=== PATIENT | male | born 1960 | race Caucasian/White ===

== ENCOUNTER → 2016-11-25 | Outpatient (CLI) | payer OTHER ==
[~2016-11-25] MED LIST: ATOR-24 PO; CHOL100010 PO; MULT-506 PO; NAPR-1169 PO; OMEP20TA PO
[2016-11-25 17:58] LABS: ALT/SGPT 48 U/L (12-78); AST/SGOT 21 U/L (15-37); BLOOD UREA NITROGEN 16 mg/dl (7-18); BUN/CREATININE RATIO 16.7 (10-20); CALCIUM 9.3 mg/dl (8.5-10.1); CARBON DIOXIDE 25 mmol/L (21-32); CHLORIDE 104 mmol/L (98-107); CREATININE 0.95 mg/dl (0.60-1.40); GLUCOSE 103 mg/dl (70-99); POTASSIUM 4.5 mmol/L (3.5-5.1); SODIUM 138 mmol/L (136-145)
[2016-11-25 18:01] LABS: ALB/GLOB RATIO 1.1 (0.9-2); ALKALINE PHOSPHATASE 82 U/L (45-117); CHOLESTEROL 173 mg/dl (0-200); CHOLESTEROL/HDL RATIO 3.3; HDL CHOLESTEROL 52 mg/dl; LDL CHOLESTEROL CALCULATED 94 mg/dl; TRIGLYCERIDES 135 mg/dl (0-150); VERY LOW DENSITY LIPOPROT CALC 27 mg/dl
== END | disposition home or self-care (01) ==
LOC: C.LABBFT 12:16
PROVIDERS: ATTEND Nurse Practitioner
DX: E78.00 Pure hypercholesterolemia, unspecified (principal)

== ENCOUNTER → 2017-06-23 | Outpatient (CLI) | payer OTHER ==
[2017-06-23 16:54] LABS: ALT/SGPT 56 U/L (12-78); AST/SGOT 23 U/L (15-37); BLOOD UREA NITROGEN 15 mg/dl (7-18); BUN/CREATININE RATIO 16.4 (10-20); CALCIUM 9.1 mg/dl (8.5-10.1); CARBON DIOXIDE 30 mmol/L (21-32); CHLORIDE 104 mmol/L (98-107); CREATININE 0.93 mg/dl (0.60-1.40); GLUCOSE 109 mg/dl (70-99); POTASSIUM 4.7 mmol/L (3.5-5.1); SODIUM 137 mmol/L (136-145)
[2017-06-23 16:57] LABS: ALB/GLOB RATIO 1.1 (0.9-2); ALKALINE PHOSPHATASE 84 U/L (45-117); CHOLESTEROL 152 mg/dl (0-200); CHOLESTEROL/HDL RATIO 3.1; HDL CHOLESTEROL 49 mg/dl; LDL CHOLESTEROL CALCULATED 81 mg/dl; TRIGLYCERIDES 108 mg/dl (0-150); VERY LOW DENSITY LIPOPROT CALC 22 mg/dl
== END | disposition home or self-care (01) ==
LOC: C.LABBFT 11:46
PROVIDERS: ATTEND Nurse Practitioner
DX: E78.00 Pure hypercholesterolemia, unspecified (principal); R53.83 Other fatigue

== ENCOUNTER → 2017-12-23 | Outpatient (CLI) | payer OTHER ==
[2017-12-23 12:46] LABS: ALBUMIN 4.1 gm/dl (3.4-5.0); ALT/SGPT 60 U/L (12-78); BLOOD UREA NITROGEN 21 mg/dl (7-18); CALCIUM 9.1 mg/dl (8.5-10.1); CARBON DIOXIDE 27 mmol/L (21-32); CHOLESTEROL 152 mg/dl (0-200); CREATININE 0.93 mg/dl (0.60-1.40); GLUCOSE 131 mg/dl (70-99); POTASSIUM 4.5 mmol/L (3.5-5.1); SODIUM 136 mmol/L (136-145)
[2017-12-23 12:51] LABS: ALKALINE PHOSPHATASE 75 U/L (45-117); AST/SGOT 36 U/L (15-37); LDL CHOLESTEROL CALCULATED 85 mg/dl; TOTAL PROTEIN 8.2 gm/dl (6.4-8.2)
== END | disposition home or self-care (01) ==
LOC: C.LABBFT 07:31
PROVIDERS: ATTEND Nurse Practitioner
DX: E78.00 Pure hypercholesterolemia, unspecified (principal); Z12.5 Encounter for screening for malignant neoplasm of prostate

== ENCOUNTER 2023-01-08 12:18 | Inpatient (IN) ==
[2023-01-08] MEDS ORDERED: ONDANSETRON INJ 2 MG/ML 2 ML VIAL ONE ×2 (12:29→16:27)
[2023-01-08] MEDS ORDERED: ONDANSETRON INJ 2 MG/ML 2 ML VIAL IV STA (12:35)
[2023-01-08] MEDS ORDERED: HYDROmorphone INJ 1 MG/ML SYRINGE IV STA ×2 (12:42→13:57)
[2023-01-08] MEDS ORDERED: SODIUM CHLORIDE 0.9% 1000ML 1,000 ML IV ONE ×2 (12:42→14:30)
--- NOTE | 2023-01-08 12:43 | Emergency Department Note ---
Impression & Plan Calculus of proximal right ureter, Hydronephrosis, right, Intractable pain ED Provider Note Name: COTY EUGENE Age: 62 Sex: M Arrives Via: Walk-In Informant: Patient ED Provider: Parrish Melgoza MD Chief Complaint: Right flank pain Impression: As per impressions above Medical Decision Makin-year-old gentleman with a history of hypertension type 2 diabetes, dyslipidem ia, obesity, BRIGIDO arrives for evaluation of right flank pain. Patient had sudden onset right flank pain and very much appears to be kidney stone in nature. Did have recent left shoulder surgery but no shortness of breath chest pain nor symptoms consistent with PE. CT of the abdomen pelvis does reveal a 2 mm proximal stone with mild hydro-. Unfortunate patient with significant difficulty controlling his pain. He has received 4 rounds of IV Dilaudid along with some IV Toradol varying dosing and continues to be uncomfortable. Unfortunately is becoming a bit hypoxic despite still being a bit uncomfortable. He has been in the department about 3 hours and given the persistent discomfort I think likely will require hospitalization for pain control. Unfortunately was unable to get a urine sample quite yet though is not having any fevers chills nor urinary burning symptoms. Triage/Nursing Notes reviewed by Me Differentials:Renal colic, pyelonephritis, sepsis, aortic pathology, cholecystitis, appendicitis, PE amongst multiple other pathologies considered Vital Signs: reviewed and remarkable for hypertension on arrival Interventions: 1 mg IV x2, Dilaudid 0.5 mg IV x2, Toradol 10 mg IV, normal saline bolus 2 L IV, Zofran 4 mg IV Labs:Reviewed and remarkable for no significant abnormalities Imaging:CT imaging of the abdomen pelvis without contrast as per my informal interpretation reveals a 2 mm proximal right ureteral stone with small stones in the right kidney as well. Confirmed by radiologist CT chart for entirety of their read Consults:Reviewed with on-call urology who agree no clear indication for emergent OR and given medical issues will bring into hospitalist service for pain control thus hospitalist consulted for further management Plan: Disposition:Hospitalization. Condition: Good History of Present Illness: 62 yr old male with right flank pain. Sudden onset right flank pain this afternoon. Associated nausea, vomiting. Radiation to right abdomen. Nothing makes better nor worse. No medications prior to arrival. No previous similar symptoms. Denies any shob, anterior abdominal pain, leg pain, chest pain, sob, palpitations, nor syncope. No other symptoms. No trauma nor injuries. Recent left shoulder surgery 3 weeks ago. Past History:DMII, HLP, HTN amongst others Home Medications:See Below Allergies:See Below Vitals:Blood Pressure: 198/124, Pulse 97, RR 18, T 36.3C, O2 96% on RA Physical Exam: GENERAL: Patient is very uncomfortable appearing and in moderate distress. EYES: No scleral icterus, unremarkable pupils. RESPIRATORY: No dyspnea. Clear to auscultation and equal bilaterally. No wheeze, no rhonchi. CARDIOVASCULAR: Regular rate and rhythm.No murmurs, rubs, gallops appreciated. GASTROINTESTINAL: Abdomen soft, non-tender, no peritonitis. BACK: No midline tenderness, no CVA tenderness EXTREMITIES: Normal motion all extremities, no cyanosis, no edema. NEUROLOGIC: Alert and oriented, no acute motor or sensory deficits, no focal weakness, cranial nerves grossly intact. SKIN: No rash, no jaundice, no diaphoresis. PSYCH: Appropriate GCS: 15 Parrish Melgoza MD Past Med/Surg History Medical History (Updated 01/09/23 @ 14:25 by Parrish Melgoza MD) Colon polyps GERD (gastroesophageal reflux disease) Hypercholesterolemia Hypertension Internal hemorrhoids Sleep apnea NO DEVICE Type 2 diabetes mellitus without complication IDDM Surgical History (Updated 12/12/22 @ 13:02 by Gabriel Mtz PA-C) History of ankle surgery ORIF right ankle (with hardware as a child) History of appendectomy History of colonoscopy History of dental surgery History of repair of rotator cuff RT glidescope #4 ETT 8 + PNB. Family History Mother Cervical cancer Ovarian cancer Diabetes Cardiac disorder Myocardial infarction Father Cardiac disorder Myocardial infarction Other No family history of adverse response to anesthesia Denies family history of Prostate cancer Breast cancer Colorectal cancer Social History Smoking Status: Former smoker Age Started Using Tobacco: 13; packs per day: 1.5; Second Hand Exposure: Yes ('S SMOKES); Hx Alcohol Use: No Hx Substance Use: No Preferred Language: Lao Communication Ability: Effective Lead Radiation Therapist Required: No Beliefs That Will Affect Care: None Current Living Situation: Spouse current occupational status: employed current occupation: HAS BEEN OFF WORK SINCE 04/30/22 Other Information That Helps Us Care for You: No Feels Safe at Home: Yes Safety Concerns: Feels Safe At This Time caffeine: Yes Dental Care, Regularly: Yes Physical Activity Frequency: 5-6 Times per Week Seatbelt Use: always Sunscreen Use: Yes Assistive Devices: None Allergies Allergies Allergy/AdvReac Type Severity Reaction Status Date / Time iodine Allergy Intermediate ABDOMINAL Verified 01/08/23 13:45 CRAMPING shellfish derived Allergy Intermediate MUSCLE Verified 01/08/23 13:45 CRAMPS Home Meds Home Medications Medication Instructions Recorded Confirmed cholecalciferol (vitamin D3) 50 2,000 units PO HS 06/01/19 01/08/23 mcg (2,000 unit) tablet lancets (Accu-Chek Fastclix Lancet #50 ea 06/01/19 11/25/22 Drum) pnypsbyzcmyh-gpgsvfxu-konqlt tablet 1 tab PO HS 06/01/19 01/08/23 coenzyme Q10 200 mg capsule 400 mg PO HS 04/18/20 01/08/23 ascorbic acid (vitamin C) 500 mg 500 mg PO QAM 06/25/22 01/08/23 tablet (Vitamin C) cyanocobalamin (vitamin B-12) 1,000 mcg PO DAILY 11/25/22 01/08/23 1,000 mcg tablet insulin detemir U-100 100 unit/mL 20 unit subcut HS 12/06/22 01/08/23 (3 mL) subcutaneous pen (Levemir FlexPen) zinc gluconate 50 mg tablet 50 mg PO DAILY 01/08/23 01/08/23 Previous Rx's Medication Instructions Recorded dulaglutide 3 mg/0.5 mL 3 mg (0.5 mL) subcut WK #12 02/13/22 subcutaneous pen injector SYRINGES naproxen 500 mg tablet 500 mg PO BID PRN pain #180 tabs 06/24/22 rosuvastatin 20 mg tablet 20 mg PO HS #90 tabs 06/24/22 pen needle, diabetic 32 gauge x #100 ea 07/01/22 1/4" (BD Ultra-Fine Micro Pen Needle) blood sugar diagnostic (OneTouch #100 ea 07/02/22 Ultra Test strips) blood-glucose meter (OneTouch #1 ea 07/02/22 Ultra2 Meter) lancets 30 gauge (Jaynauch Dellionel #100 ea 07/02/22 Lancets) irbesartan 150 mg tablet 150 mg PO QAM #90 tabs 11/25/22 metformin 500 mg tablet,extended 1,000 mg PO BID #360 tabs 11/25/22 release 24 hr omeprazole 20 mg capsule,delayed 20 mg PO QAM #90 caps 11/25/22 release Results & Data (ED) Vital Signs Vital Signs - 24 hr 01/08/23 15:39 01/08/23 15:01 01/08/23 15:38 Pulse Rate [Right] 99 H 99 H 98 H Pulse Rhythm [Right] Regular Respiratory Rate 17 16 17 Respiratory Effort / Characteristics Non-Labored Spontaneous Non-Labored Spontaneous Respiratory Depth Normal Normal Blood Pressure [Right Arm] 162/88 H 178/99 H 162/88 H Blood Pressure Mean [Right Arm] 112 125 112 Blood Pressure Position [Right Arm] Sitting Pulse Oximetry 97 91 96 Oxygen Delivery Method Nasal Cannula Room Air Nasal Cannula Oxygen Flow Rate 2 2 Laboratory Data 01/09/23 07:13 01/09/23 07:13 Lab Results 01/08/23 01/08/23 01/08/23 Range/Units 12:28 12:28 14:50 WBC 11.81 H (4.8-10.8) K/ul RBC 4.52 L (4.70-6.10) M/uL Hgb 13.2 L (14.0-18.0) g/dl Hct 40.2 L (42.0-52.0) % MCV 88.9 (80.0-100.0) fL MCH 29.2 (25.0-34.0) pg MCHC 32.8 (32.0-36.0) g/dL RDW Std Deviation 43.9 (36.4-46.3) fL RDW Coeff of Maverick 13.4 (11.5-14.5) % Plt Count 274 (130-400) K/uL MPV 12.3 (9.4-12.4) fL Immature Gran % (Auto) 0.3 % Neut % (Auto) 71.1 % Lymph % (Auto) 19.1 % Kingfisher % (Auto) 6.6 % Eos % (Auto) 2.4 % Baso % (Auto) 0.5 % Neut # (Auto) 8.39 H (1.40-6.50) K/uL Lymph # (Auto) 2.26 (1.2-3.4) K/uL Kingfisher # (Auto) 0.78 H (0.11-0.59) K/uL Eos # (Auto) 0.28 (0-0.50) K/uL Baso # (Auto) 0.06 (0-0.2) K/uL Immature Gran # (Auto) 0.04 (0.01-0.20) K/uL Sodium 136 (136-145) mmol/L Potassium 4.5 (3.5-5.1) mmol/L Chloride 100 (98-107) mmol/L Carbon Dioxide 26 (21-32) mmol/L Anion Gap 10 (3-11) BUN 26 H (6-23) mg/dl Creatinine 1.17 (0.6-1.4) mg/dl Est Cr Clr Drug Dosing 80.0 ml/min Est GFR ( Amer) 77.0 ml/min Est GFR (Non-Af Amer) 66.4 ml/min BUN/Creatinine Ratio 22.2 H (10-20) Glucose 167 H (70-99(Fasting)) mg/dl Calcium 10.0 (8.6-10.3) mg/dl Total Bilirubin 0.5 (0.2-1.0) mg/dl AST 25 (13-39) U/L ALT 29 (7-52) U/L Alkaline Phosphatase 65 (34-104) U/L Total Protein 8.9 H (6.0-8.3) gm/dl Albumin 4.6 (3.4-5.0) gm/dl Globulin 4.3 H (2.5-4.0) gm/dl Albumin/Globulin Ratio 1.1 (0.9-2) SARS-CoV-2, RNA, NAAT NEGATIVE (NEGATIVE) Administered Medications Lactated Ringer's (Lr) 1,000 mls @ 125 mls/hr IV .Q8H SULAIMAN Stop: 02/07/23 15:59 Last Admin: 01/09/23 07:35 Dose: 125 mls/hr Documented By: Infusion: 01/09/23 07:28 Dose: 125 mls/hr Documented By: Admin: 01/08/23 23:28 Dose: 125 mls/hr Documented By: Infusion: 01/08/23 23:28 Dose: 125 mls/hr Documented By: Admin: 01/08/23 16:03 Dose: 125 mls/hr Documented By: Insulin Aspart (Insulin Aspart Per Unit Charge) 0 units SC ACHS SULAIMAN Stop: 02/07/23 16:44 Last Admin: 01/09/23 12:57 Dose: 5 units Documented By: CARIN Co-signed By: WINTER Admin: 01/09/23 09:15 Dose: 5 units Documented By: CARIN Co-signed By: WINTER Admin: 01/08/23 20:25 Dose: Not Given Documented By: Admin: 01/08/23 17:14 Dose: Not Given Documented By: NARENDRA Insulin Glargine (Lantus Per Unit Charge) 20 units SQ HS [facility] Stop: 02/07/23 20:59 Last Admin: 01/08/23 20:23 Dose: 20 units Documented By: DWIGHT Co-signed By: JEAN Losartan Potassium (Losartan Potassium 50 Mg Tab) 50 mg PO QAM SULAIMAN Stop: 02/08/23 08:59 Last Admin: 01/09/23 09:15 Dose: 50 mg Documented By: CARIN Pantoprazole Sodium (Pantoprazole 40 Mg Tab) 40 mg PO DAILY SULAIMAN Stop: 02/08/23 08:59 Last Admin: 01/09/23 09:16 Dose: 40 mg Documented By: CARIN Rosuvastatin Calcium (Rosuvastatin Calcium 20 Mg Tab) 20 mg PO [facility] Stop: 02/07/23 20:59 Last Admin: 01/08/23 20:26 Dose: 20 mg Documented By: DIWGHT Tamsulosin HCl (Tamsulosin Hcl 0.4 Mg Cap) 0.4 mg PO QAM SULAIMAN Stop: 02/08/23 08:59 Last Admin: 01/09/23 09:16 Dose: 0.4 mg Documented By: CARIN Discontinued Medications Hydromorphone HCl (Hydromorphone Inj 1 Mg/Ml Syringe) 1 mg IV NOW STA Stop: 01/08/23 12:43 Last Admin: 01/08/23 12:48 Dose: 1 mg Documented By: Hydromorphone HCl (Hydromorphone Inj 0.5 Mg/0.5 Ml Syr) 0.5 mg IV NOW STA Stop: 01/08/23 13:09 Last Admin: 01/08/23 13:13 Dose: 0.5 mg Documented By: Hydromorphone HCl (Hydromorphone Inj 1 Mg/Ml Syringe) 1 mg IV NOW STA Stop: 01/08/23 13:58 Last Admin: 01/08/23 13:59 Dose: 1 mg Documented By: MICHAEL Hydromorphone HCl (Hydromorphone Inj 0.5 Mg/0.5 Ml Syr) 0.5 mg IV NOW STA Stop: 01/08/23 14:31 Last Admin: 01/08/23 14:44 Dose: 0.5 mg Documented By: Sodium Chloride (Nss 1000ml) 1,000 mls @ 999 mls/hr IV .Q1H1M ONE Stop: 01/08/23 13:42 Last Infusion: 01/08/23 13:49 Dose: 0 mls/hr Documented By: Admin: 01/08/23 12:48 Dose: 999 mls/hr Documented By: Sodium Chloride (Nss 1000ml) 500 mls @ 999 mls/hr IV .Q31M ONE Stop: 01/08/23 13:38 Last Infusion: 01/08/23 13:46 Dose: 0 mls/hr Documented By: Admin: 01/08/23 13:15 Dose: 999 mls/hr Documented By: Sodium Chloride (Nss 1000ml) 1,000 mls @ 999 mls/hr IV .Q1H1M ONE Stop: 01/08/23 15:30 Last Infusion: 01/08/23 15:49 Dose: 0 mls/hr Documented By: Admin: 01/08/23 14:48 Dose: 999 mls/hr Documented By: Ketorolac Tromethamine (Ketorolac Tromethamine 15 Mg/Ml Vial) 10 mg IV NOW STA Stop: 01/08/23 13:58 Last Admin: 01/08/23 14:43 Dose: 10 mg Documented By: Ondansetron HCl (Ondansetron Inj 2 Mg/Ml 2 Ml Vial) Confirm Administered Dose 4 mg .ROUTE .STK-MED ONE Stop: 01/08/23 12:30 Last Admin: 01/08/23 12:36 Dose: Not Given Documented By: SMITHA Ondansetron HCl (Ondansetron Inj 2 Mg/Ml 2 Ml Vial) 4 mg IV NOW STA Stop: 01/08/23 12:36 Last Admin: 01/08/23 12:36 Dose: 4 mg Documented By: SMITHA Ondansetron HCl (Ondansetron Inj 2 Mg/Ml 2 Ml Vial) Confirm Administered Dose 4 mg .ROUTE .STK-MED ONE Stop: 01/08/23 16:28 Last Admin: 01/08/23 16:28 Dose: 4 mg Documented By: Tamsulosin HCl (Tamsulosin Hcl 0.4 Mg Cap) 0.4 mg PO NOW ONE Stop: 01/08/23 15:48 Last Admin: 01/08/23 17:11 Dose: Not Given Documented By: NARENDRA Discharge Plan Visit Data Chief Complaint: Flank Pain Stated Complaint: RIGHT SIDE BACK PAIN ED Provider: Parrish Melgoza Discharge Problem: Calculus of proximal right ureter, Hydronephrosis, right, Intractable pain Patient Disposition: Admitted As Inpatient Discharge Instructions Interventions: ED Discharge Assessment Last Done: 01/08/23 16:16
[2023-01-08] MEDS ORDERED: SODIUM CHLORIDE 0.9% 1000ML 500 ML IV ONE (13:08)
[2023-01-08] MEDS ORDERED: HYDROmorphone INJ 0.5 MG/0.5 ML SYR IV STA ×2 (13:08→14:30)
--- NOTE | 2023-01-08 13:29 | CT Scan Report ---
CT SCAN OF THE ABDOMEN AND PELVIS WITHOUT IV CONTRAST CLINICAL HISTORY: Right flank pain. COMPARISON STUDY: Abdominal CT dated 03/18/2009. TECHNIQUE: CT scan of the abdomen and pelvis is performed from the lung bases to the proximal femora. Images are reviewed in the axial, sagittal, and coronal planes. IV contrast was not administered for this examination. A dose lowering technique was utilized adhering to the principles of ALARA. There is streak artifact from the left arm which could not be elevated above the abdomen. CT DOSE: 1531.68 mGy.cm FINDINGS: Lung bases: The heart is normal in size and without pericardial effusion. The coronary arteries and a ortic valve leaflets are densely calcified. There is a small hiatal hernia. There are scattered calci fied granulomas. The lung bases are otherwise clear noting bibasilar scarring/atelectasis. Liver: The unenhanced liver is enlarged, measuring 20.6 cm in length. The liver demonstrates diffusel y diminished attenuation indicating steatosis. Fatty sparing is seen adjacent to the gallbladder carole a. There is no intrahepatic biliary ductal dilatation. Gallbladder: Unremarkable. Spleen: Normal in size and attenuation. Pancreas: The unenhanced pancreas is grossly unremarkable. Adrenal glands: Unremarkable. Kidneys: The unenhanced kidneys demonstrate mild cortical atrophy. There is a 2 mm obstructing calcul us in the right proximal ureter at the level of L3 on L4 seen on image #232. This causes mild right h ydroureteronephrosis. There is associated right-sided perinephric stranding. There are at least 3 add itional small nonobstructing right renal calculi which measure up to 4 mm. No left renal calculi are identified and there is no left-sided hydronephrosis. An indeterminate 12 mm cortical hypodensity jani ses from the lower pole of the left kidney. Abdominal vasculature: There is advanced atherosclerotic calcification mild ectasia of the abdominal aorta. 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 Bowel: There is moderate sigmoid diverticulosis without CT evidence of acute diverticulitis. No bowel obstruction is seen. The appendix is surgically absent. Peritoneum: There is no intraperitoneal free air or abdominal ascites. There is a small fat-containin g umbilical hernia. Lymphadenopathy: None. Pelvic viscera: The prostate gland is diminutive and heterogeneous. The bladder wall appears thickene d/trabeculated suggesting chronic outlet obstruction Skeletal structures: The skeletal structures appear osteopenic. There is mild lumbosacral spondylosis . No lytic or blastic lesions are seen. There are chronic/healed right-sided rib fractures. IMPRESSION: 1. There is a 2 mm obstructing calculus in the right proximal ureter. This causes mild right hydroure teronephrosis. 2. Additional nonobstructing right renal calculi as above. 3. Hepatomegaly and hepatic steatosis. 4. Advanced coronary artery calcification. 5. Sigmoid diverticulosis without CT evidence of acute diverticulitis. 6. An indeterminate 12 mm cortical hypodensity arises from the lower pole of the left kidney. A nonem ergent renal ultrasound is recommended in follow-up. 7. Additional findings as above. ACT 112: Negative or not required by law. Electronically signed by: Syd Barnhart M.D. 01/08/2023 1:27 PM
[2023-01-08 13:37] LABS: Basophils # (auto) 0.06 K/uL (0-0.2); Basophils % (auto) 0.5 %; Eosinophils # (auto) 0.28 K/uL (0-0.50); Eosinophils % (auto) 2.4 %; Hematocrit (blood only) 40.2 % (42.0-52.0); Hemoglobin 13.2 g/dl (14.0-18.0); Immature Granulocytes # (auto) 0.04 K/uL (0.01-0.20); Immature Granulocytes % (auto) 0.3 %; Lymphocytes # (auto) 2.26 K/uL (1.2-3.4); Lymphocytes % (auto) 19.1 %; Mean Corpuscular Hemoglobin 29.2 pg (25.0-34.0); Mean Corpuscular Hgb Conc 32.8 g/dL (32.0-36.0); Mean Corpuscular Volume 88.9 fL (80.0-100.0); Mean Platelet Volume 12.3 fL (9.4-12.4); Monocytes # (auto) 0.78 K/uL (0.11-0.59); Monocytes % (auto) 6.6 %; Neutrophils # (auto) 8.39 K/uL (1.40-6.50); Neutrophils % (auto) 71.1 %; Platelet Count 274 K/uL (130-400); RDW Coefficient of Variation 13.4 % (11.5-14.5); RDW Standard Deviation 43.9 fL (36.4-46.3); Red Blood Count 4.52 M/uL (4.70-6.10); White Blood Count 11.81 K/ul (4.8-10.8)
[2023-01-08] MEDS ORDERED: KETOROLAC TROMETHAMINE 15 MG/ML VIAL IV STA (13:57)
[2023-01-08 13:59] LABS: Albumin Level 4.6 gm/dl (3.4-5.0); Bilirubin,Total 0.5 mg/dl (0.2-1.0); Potassium 4.5 mmol/L (3.5-5.1)
[2023-01-08 14:05] LABS: Albumin Globulin Ratio 1.1 (0.9-2); BUN Creatinine Ratio 22.2 (10-20); Est GFR (Non-African American) 66.4 ml/min; Globulin 4.3 gm/dl (2.5-4.0); Total Protein 8.9 gm/dl (6.0-8.3)
--- NOTE | 2023-01-08 15:16 | History & Physical Report ---
Date of Service January 08, 2023 Assessment & Plan (1) Nephrolithiasis: Plan: Nephrolithiasis with right hydroureteronephrosis - CT-A/P: 1. There is a 2 mm obstructing calculus in the right proximal ureter. This causes mild right hydroureteronephrosis. 2. Additional nonobstructing right renal calculi as above.3. Hepatomegaly and hepatic steatosis. 4. Advanced coronary artery calcification. 5. Sigmoid diverticulosis without CT evidence of acute diverticulitis. 6. An indeterminate 12 mm cortical hypodensity arises from the lower pole of the left kidney. A nonemergent renal ultrasound is recommended in follow-up. 7. Additional findings as above. - Patient has been taking naproxen as an outpatient since having left shoulder arthroscopy and rotator cuff repair 12/12/2022. Continue Tylenol, breakthrough hydromorphone. Limit Toradol/NSAID use, patient reports he is to minimize and avoid using NSAIDs due to his recent shoulder arthroplasty. Flomax, fluids. Strain all urine Urology consulted. Recommended medical admission and management at this time, do not anticipate cystoscopy at this time. Leukocytosis of 11.81 Hemoglobin 13.2 Creatinine is less than 1.2 at baseline, admitting creatinine is 1.17 BSG 167 Patient with severe pain, not improved following Tylenol, Toradol, 4 doses of hydromorphone in ER. - Hypoxic post 4x hydromorphine, improved with oxygen. Defer agreessive dilaudid, narcan senior functional analyst for respiratory suppression UA pending, patient reports his urine has been a little concentrated and delatorre slightly. Will defer empiric antibiotic treatment until UA available Sinus tachycardia, hypertension Improved with pain control, hypertension also improved with pain control. Suspect reactive Continue pain control as noted Continue home antihypertensives, hold ARB if JUANITA develops On-call hydralazine for sustained SBP greater than 180, if persistently hypertensive despite adequate pain control contact provider for reassessment. Hyperlipidemia Continue statin Type II DM On Levemir 20 units at bedtime at home Continue Lantus 20 units at bedtime, scaled SSI based on basal needs. CF 40/ratio 13 Goal BSG [id number] Type II DM diet Hypertension Continue irbesartan 150 mg, no JUANITA on admission DVT PPx: SCDs Diet: DM2 CODE STATUS: Full code Disposition: Medical surgical (2) Sleep apnea: (3) S/P arthroscopy of right shoulder: (4) Hypertension: (5) History of arthroscopy of left shoulder: History of Present Illness Primary Care Provider: EMA Arora 10am R flank pain came on suddenly. No pain/problems like this before. Denies history of kidney stones. Was in normal state of health yesterday. Took medications this morning and thinks he kept them down No blood in the urine. +nausea/vomiting 4-5x. No blood. No chest pain or chest pressure No shortness of breath No fevers or chills, gets warm and occasionally cold with pain normally but not chills. Last urinated this morning, then a little bit an hour ago. Dark. Delatorre slightly. Taking tylenol at home for pain, 3x 500mg tablets 3-4 times per day. Yesterday only twice. No NSAIDs per patient. No alieve, Medical History: Reviewed Medications: Reviewed Surgical History: Reviewed Family history: Reviewed Allergies: Reviewed. NKDA, +iodine/shellfish suspected allergy. Had cramps and nausea Social History: No tobacco product use, no alochol use. Code Status: Full Code Allergies Allergy/AdvReac Type Severity Reaction Status Date / Time iodine Allergy Intermediate ABDOMINAL Verified 01/08/23 13:45 CRAMPING shellfish derived Allergy Intermediate MUSCLE Verified 01/08/23 13:45 CRAMPS Home Medications Medication Instructions Recorded Confirmed Type cholecalciferol (vitamin D3) 50 2,000 units PO HS 06/01/19 01/08/23 History mcg (2,000 unit) tablet lancets (Accu-Chek Fastclix Lancet #50 ea 06/01/19 11/25/22 History Drum) wekrnvohxrxj-qwqtpenp-nobamg tablet 1 tab PO HS 06/01/19 01/08/23 History coenzyme Q10 200 mg capsule 400 mg PO HS 04/18/20 01/08/23 History dulaglutide 3 mg/0.5 mL 3 mg (0.5 mL) subcut WK #12 02/13/22 01/08/23 Rx subcutaneous pen injector SYRINGES naproxen 500 mg tablet 500 mg PO BID PRN pain #180 tabs 06/24/22 01/08/23 Rx rosuvastatin 20 mg tablet 20 mg PO HS #90 tabs 06/24/22 01/08/23 Rx ascorbic acid (vitamin C) 500 mg 500 mg PO QAM 06/25/22 01/08/23 History tablet (Vitamin C) pen needle, diabetic 32 gauge x #100 ea 07/01/22 11/25/22 Rx 1/4" (BD Ultra-Fine Micro Pen Needle) blood sugar diagnostic (OneTouch #100 ea 07/02/22 11/25/22 Rx Ultra Test strips) blood-glucose meter (OneTouch #1 ea 07/02/22 11/25/22 Rx Ultra2 Meter) lancets 30 gauge (OneTouch Delica #100 ea 07/02/22 11/25/22 Rx Lancets) cyanocobalamin (vitamin B-12) 1,000 mcg PO DAILY 11/25/22 01/08/23 History 1,000 mcg tablet irbesartan 150 mg tablet 150 mg PO QAM #90 tabs 11/25/22 01/08/23 Rx metformin 500 mg tablet,extended 1,000 mg PO BID #360 tabs 11/25/22 01/08/23 Rx release 24 hr omeprazole 20 mg capsule,delayed 20 mg PO QAM #90 caps 11/25/22 01/08/23 Rx release insulin detemir U-100 100 unit/mL 20 unit subcut HS 12/06/22 01/08/23 History (3 mL) subcutaneous pen (Levemir FlexPen) zinc gluconate 50 mg tablet 50 mg PO DAILY 01/08/23 01/08/23 History Past Med/Surg History Medical History (Updated 01/08/23 @ 15:35 by Long Israel MD) Colon polyps GERD (gastroesophageal reflux disease) Hypercholesterolemia Hypertension Internal hemorrhoids Sleep apnea NO DEVICE Type 2 diabetes mellitus without complication IDDM Surgical History (Updated 12/12/22 @ 13:02 by Gabriel Mtz PA-C) History of ankle surgery ORIF right ankle (with hardware as a child) History of appendectomy History of colonoscopy History of dental surgery History of repair of rotator cuff RT glidescope #4 ETT 8 + PNB. Family History Mother Cervical cancer Ovarian cancer Diabetes Cardiac disorder Myocardial infarction Father Cardiac disorder Myocardial infarction Other No family history of adverse response to anesthesia Denies family history of Prostate cancer Breast cancer Colorectal cancer Social History Smoking Status: Former smoker Age Started Using Tobacco: 13; packs per day: 1.5; Second Hand Exposure: Yes ('S SMOKES); Hx Alcohol Use: Yes Alcohol type: beer Hx Substance Use: No Preferred Language: Guyanese Communication Ability: Effective Research Coordinator Required: No Beliefs That Will Affect Care: None Current Living Situation: Spouse current occupational status: employed current occupation: HAS BEEN OFF WORK SINCE 04/30/22 Feels Safe at Home: Yes caffeine: Yes Dental Care, Regularly: Yes Physical Activity Frequency: 5-6 Times per Week Seatbelt Use: always Sunscreen Use: Yes Assistive Devices: Glasses Review of Systems Review of Systems: All systems reviewed & are unremarkable except as noted in HPI & below Physical Exam Physical Exam: General: A&Ox3. NAD. Cooperative. HEENT: Atraumatic, normocephalic. Vision/hearing grossly intact Pulm: CTAB A&P. -wheezes, -rales, -rhonchi. Symmetrical chest rise. No increased work of breathing. No respiratory distress. Cardiac: RRR, -mrg. Radial pulses intact and symmetrical. Abdominal: Nontender, nondistended, soft. BS present. Slight low right CVA tenderness on percussion Extremities: Warm, dry. Moving all extremities equally Results & Data Results & Data Vital Signs (Past 12 Hours) Vital Signs Temp Pulse Pulse Resp BP BP Pulse Ox 01/08/23 15:01 99 H 16 178/99 H 91 01/08/23 12:23 36.3 C L 97 H 18 198/124 H 96 O2 Del Method 01/08/23 15:01 Room Air 01/08/23 12:23 Room Air PG Care Time/CCT Total # of Minutes Spent Total Time Spent with Patient: Total time spent is greater than 50% in coordination of care (as documented) at patient's floor/unit and/or counseling patient: Coding Level of Care Code 11918 INT INP/OBS CARE 2/55MIN Diagnoses Nephrolithiasis N20.0 Sleep apnea G47.30 S/P arthroscopy of right shoulder Z98.890 Hypertension I10 History of arthroscopy of left shoulder Z98.890
[2023-01-08] MEDS ORDERED: TAMSULOSIN HCL 0.4 MG CAP PO ONE (15:47)
[2023-01-08] MEDS: LACTATED RINGER'S 1,000 ML IV SCH ×2 (16:03→23:28)
[2023-01-08] MEDS ORDERED: HYDROmorphone INJ 0.5 MG/0.5 ML SYR IV PRN (16:45)
[2023-01-08] MEDS ORDERED: GLUCOSE 40% GEL 15 GM TUBE PO PRN (16:45)
[2023-01-08] MEDS ORDERED: DEXTROSE 50% 50 ML SYRINGE IV PRN (16:45)
[2023-01-08] MEDS ORDERED: CARBOHYDRATES FOR HYPOGLYCEMIA PO PRN (16:45)
[2023-01-08] MEDS ORDERED: GLUCAGON FOR INJ 1 MG VIAL SQ PRN (16:45)
[2023-01-08] MEDS ORDERED: NALOXONE HCL 0.4 MG/1 ML VIAL/CARP IV PRN (16:45)
[2023-01-08] MEDS ORDERED: ACETAMINOPHEN 325 MG TAB PO PRN (16:45)
[2023-01-08] MEDS ORDERED: GLUCOSE 10 TAB/TUBE PO PRN (16:45)
[2023-01-08] MEDS ORDERED: hydrALAZINE HCL 20 MG/ML VIAL IV PRN (16:45)
[2023-01-08] MEDS: INSULIN ASPART PER UNIT CHARGE SC SCH ×2 (17:14→20:25)
[2023-01-08 20:37] LABS: Appearance Urine Clear (Clear); Bacteria Urine Automated Negative (Negative); Bilirubin Urine Negative (Negative); Blood Urine 3+ (Negative); Color Urine Dark Yellow; Glucose Urine UA Negative (Negative); Ketones Urine Negative (Negative); Leukocyte Esterase Urine Negative (Negative); Nitrite Urine Negative (Negative); Protein Urine Trace (Negative); Urobilinogen Urine Negative (Negative)
[2023-01-08] MEDS ORDERED: LANTUS PER UNIT CHARGE SQ SCH (21:00)
[2023-01-08] MEDS ORDERED: ROSUVASTATIN CALCIUM 20 MG TAB PO SCH (21:00)
[2023-01-09] MEDS: LACTATED RINGER'S 1,000 ML IV SCH (07:35)
[2023-01-09 07:46] LABS: Basophils # (auto) 0.02 K/uL (0-0.2); Basophils % (auto) 0.2 %; Eosinophils # (auto) 0.26 K/uL (0-0.50); Eosinophils % (auto) 2.2 %; Hematocrit (blood only) 33.4 % (42.0-52.0); Immature Granulocytes # (auto) 0.04 K/uL (0.01-0.20); Immature Granulocytes % (auto) 0.3 %; Lymphocytes # (auto) 2.18 K/uL (1.2-3.4); Lymphocytes % (auto) 18.9 %; Mean Corpuscular Hemoglobin 29.3 pg (25.0-34.0); Mean Corpuscular Hgb Conc 32.9 g/dL (32.0-36.0); Mean Corpuscular Volume 88.8 fL (80.0-100.0); Monocytes # (auto) 0.83 K/uL (0.11-0.59); Monocytes % (auto) 7.2 %; Neutrophils # (auto) 8.23 K/uL (1.40-6.50); Neutrophils % (auto) 71.2 %; Platelet Count 191 K/uL (130-400); RDW Coefficient of Variation 13.7 % (11.5-14.5); RDW Standard Deviation 44.5 fL (36.4-46.3); Red Blood Count 3.76 M/uL (4.70-6.10); White Blood Count 11.56 K/ul (4.8-10.8)
[2023-01-09 08:01] LABS: BUN Creatinine Ratio 24.2 (10-20); Calcium 8.9 mg/dl (8.6-10.3); Creatinine Clr Calc Pharmacy 94.3 ml/min; Est GFR (African American) 94.2 ml/min; Est GFR (Non-African American) 81.3 ml/min; Potassium 4.2 mmol/L (3.5-5.1)
[2023-01-09] MEDS ORDERED: TAMSULOSIN HCL 0.4 MG CAP PO SCH (09:00)
[2023-01-09] MEDS ORDERED: LOSARTAN POTASSIUM 50 MG TAB PO SCH (09:00)
[2023-01-09] MEDS ORDERED: PANTOprazole 40 MG TAB PO SCH (09:00)
[2023-01-09] MEDS: INSULIN ASPART PER UNIT CHARGE SC SCH ×2 (09:15→12:57)
--- NOTE | 2023-01-09 09:42 | Hospitalist Progress Note ---
Date of Service January 09, 2023 Assessment & Plan (1) Nephrolithiasis: Plan: acute Nephrolithiasis with right hydroureteronephrosis, uncontrolled pain - CT-A/P: 1. There is a 2 mm obstructing calculus in the right proximal ureter. This causes mild right hydroureteronephrosis. 2. Additional nonobstructing right renal calculi as above.3. Hepatomegaly and hepatic steatosis. 4. Advanced coronary artery calcification. 5. Sigmoid diverticulosis without CT evidence of acute diverticulitis. 6. An indeterminate 12 mm cortical hypodensity arises from the lower pole of the left kidney. A nonemergent renal ultrasound is recommended in follow-up. 7. Additional findings as above. Flomax, fluids. ivf pain, control Strain all urine Urology consulted. Recommended medical admission and management at this time, do not anticipate cystoscopy at this time. acute uncontrolled Sinus tachycardia, chronic hypertension uncontrolled with pain Improved with pain control, hypertension also improved with pain control. Suspect reactive Continue pain control as noted Continue home antihypertensives, hold ARB if JUANITA develops On-call hydralazine for sustained SBP greater than 180, if persistently hypertensive despite adequate pain control contact provider for reassessment. chronic stable Hyperlipidemia Continue statin Type II DM, chronic stable On Levemir 20 units at bedtime at home Continue Lantus 20 units at bedtime, scaled SSI based on basal needs. CF 40/ratio 13 Goal BSG [id number] DVT PPx: SCDs (2) History of arthroscopy of left shoulder: Admission and Anticipated Discharge Date Admission Date: January 08, 2023 Results & Data Results & Data Vital Signs (Past 12 Hours) Vital Signs Temp Pulse Resp BP Pulse Ox O2 Del Method 01/09/23 07:35 98.4 F 106 H 16 142/96 H 95 Room Air PG Care Time/CCT Total # of Minutes Spent Total Time Spent with Patient: Total time spent is greater than 50% in coordination of care (as documented) at patient's floor/unit and/or counseling patient: Coding Diagnoses Nephrolithiasis N20.0 History of arthroscopy of left shoulder Z98.890
--- NOTE | 2023-01-09 16:02 | Discharge Summary ---
Date of Service January 09, 2023 Admission HPI Per Admitting Provider 10am R flank pain came on suddenly. No pain/problems like this before. Denies history of kidney stones. Was in normal state of health yesterday. Took medications this morning and thinks he kept them down No blood in the urine. +nausea/vomiting 4-5x. No blood. No chest pain or chest pressure No shortness of breath No fevers or chills, gets warm and occasionally cold with pain normally but not chills. Last urinated this morning, then a little bit an hour ago. Dark. [place] slightly. Taking tylenol at home for pain, 3x 500mg tablets 3-4 times per day. Yesterday only twice. No NSAIDs per patient. No alieve, Medical History: Reviewed Medications: Reviewed Surgical History: Reviewed Family history: Reviewed Allergies: Reviewed. NKDA, +iodine/shellfish suspected allergy. Had cramps and nausea Social History: No tobacco product use, no alochol use. Code Status: Full Code Principal Diagnosis Right nephrolithiasis with mild hydronephrosis Indeterminate left lower lobe hypodensity of the kidney Possible passage of stone in the hospital Discharge Exam Patient is without distress he has no CV angle tenderness he feels fine Discharge Data Allergies Allergy/AdvReac Type Severity Reaction Status Date / Time iodine Allergy Intermediate ABDOMINAL Verified 01/08/23 13:45 CRAMPING shellfish derived Allergy Intermediate MUSCLE Verified 01/08/23 13:45 CRAMPS Consultations 01/08/23 15:14 ED Decision to Admit Stat Ordered Studies 01/08/23 12:42 CT abd pelvis wo con Stat Hospital Course (1) Nephrolithiasis: acute Nephrolithiasis with right hydroureteronephrosis, uncontrolled pain - CT-A/P: 1. There is a 2 mm obstructing calculus in the right proximal ureter. This causes mild right hydroureteronephrosis. 2. Additional nonobstructing right renal calculi as above.3. Hepatomegaly and hepatic steatosis. 4. Advanced coronary artery calcification. 5. Sigmoid diverticulosis without CT evidence of acute diverticulitis. 6. An indeterminate 12 mm cortical hypodensity arises from the lower pole of the left kidney. A nonemergent renal ultrasound is recommended in follow-up. 7. Additional findings as above. Flomax, fluids. Given home instructions for her nephrolithiasis. Strain all urine Urology consulted. Recommended medical admission and management at this time, do not anticipate cystoscopy at this time. Will recommend outpatient follow-up with urology to discuss strategies of controlling stones and also to follow-up on the left kidney hypodensity acute uncontrolled Sinus tachycardia self-limited resolved with treatment of pain , chronic hypertension uncontrolled self-limited resolved with treatment of pain chronic stable Hyperlipidemia Continue statin Type II DM, chronic stable Return home diabetic management (2) History of arthroscopy of left shoulder: Total Time Total Time Spent Total Time Spent (In Minutes): It required greater than 30 minutes to prepare this patient for discharge Discharge Plan Discharge Items Patient Disposition: Home - Self-Care Reason For Visit: NEPHROLITHIASIS Discharge Diagnosis: kidney stone with pain Activity: Resume your previous activity Non-emergency contact: Primary Care Provider and Urologist Call non-emergency contact if: your symptoms worsen Follow-up/Referrals: Deepali Acevedo CRNP [Primary Care Provider] - Diet: Regular Addtl Attending Provider Instructions: A kidney stone is a hard mass that forms from crystals in the urine. They can be as tiny as a grain of sand or as big as a golf ball. Sometimes they stay in the kidney, but they often travel through the urinary tract. If a kidney stone is small enough, you may not even know you have one as it passes through the urinary system. A large kidney stone can cause significant pain. It can also block the flow of urine, causing harmful backups. The most common type of kidney stones are calcium oxalate stones. Calcium naturally binds to a substance called oxalate. Ideally, calcium binds with oxalate in the stomach and intestines before moving to the kidneys. Then, the substances leave the body without forming stones. However, if calcium and oxalate combine in the urine, they can form kidney stones, especially if theres not enough liquid. Kidney stones are common. The National Kidney Foundation estimates thatone in 10 people will have a kidney stone https://www.kidney.org/atoz/content/kidneystones#vuialy-prhyc-atqzqvnih at some point in their lives. They affect more men than women. What are the Symptoms? If youve had kidney stones before, you may recognize the signs. Typical symptoms of kidney stones are: * Chills. * Constant need to urinate. * Fever. * Bloody urine. * Nausea. * Pain in your lower back or side (flank pain). * Vomiting. What are the Risk Factors? Theres no one cause for kidney stones, but some people are more likely to get them. Risk factors include: * Obesity * Dehydration. * Eating a high-protein and/or high-salt (sodium) diet. * Genetics. How to Treat Kidney Stones at Home Some people treat kidney stones at home using remedies like apple cider vinegar, pomegranate juice, and dandelion tea. But these have not been clinically proven to dissolve kidney stones. If you feel a kidney stone coming on or want to prevent future stones from forming try these methods. Drink lots of water The absolute best kidney stone home remedy is simple: Drink more water. The liquid will help flush the stones through your urinary tract. Aim for at least 12 eight-ounce glasses of water per day if youre trying to pass a stone. If possible, catch the stone in a strainer when it passes. Your doctor may want to examine it to determine what kind of kidney stone you have. After the stone passes, keep drinking lots of water to help prevent more stones from forming. If yourewell-hydrated [email or web address]/mbsk-bgyiomm-yzlcxskj/ , your urine should be pale yellow. Dark urine is a sign of dehydration. Cut back on other drinks Drinking coffee, tea, alcohol, and soda can increase dehydration. Its best to stick to water to flush out kidney stones. Add ricardo to your water and food Lemon juice https://share.HDF.tagUin/9-ddtsee-mlfopbpl-lemon-juice/ contains the chemical citrate. Citrate may help break up small kidney stones. Citrate also helps stop kidney stones from forming in the first place. To get the benefit, add four ounces of lemon juice to your water throughout the day. You can also spritz lemon juice on salads and other veggies. Take jgpi-pde-ubmztlt (OTC) pain relievers To help relieve the discomfort of kidney stones, you can take a non-steroidal anti-inflammatory drug (NSAID). They include OTC pain medications like ibuprofen (Advil, Motrin), acetaminophen (Tylenol), and naproxen (Aleve). Follow the package directions for correct dosage. Addtl Real Estate Financial Analyst Provider Instructions: The CT scan you had on admission did show your kidney stone also recommended a follow-up ultrasound of your left kidney. He will be referred to urology which can follow you up for both your kidney stone and this indeterminate hypodensity seen in the left kidney. Pending Studies at Discharge: Yes Studies:: stone evaluation and urine culture Stand-Alone Forms: [facility], Smoking Cessation Medications and DC Order Prescriptions: New tamsulosin 0.4 mg Capsule 0.4 mg PO QAM Qty: 21 0RF Continued dulaglutide 3 mg/0.5 mL pen injector 3 mg subcut WK Qty: 12 3RF Rx Instructions: TUESDAYS naproxen 500 mg tablet 500 mg PO BID PRN (Reason: pain) Qty: 180 1RF rosuvastatin 20 mg tablet 20 mg PO HS Qty: 90 3RF (DME) pen needle, diabetic [BD Ultra-Fine Micro Pen Needle] 32 gauge x 1/4" needle See Rx Instructions .Route Qty: 100 3RF Rx Instructions: Use with Lantus to inject insulin Dx: E11.9 (DME) OneTouch Ultra Test Strip See Rx Instructions .Route Qty: 100 2RF Rx Instructions: TEST BSG TWICE DAILY; DX CODE- E11.9 (DME) blood-glucose meter [OneTouch Ultra2 Meter] Misc See Rx Instructions .Route Qty: 1 0RF Rx Instructions: TEST BSG TWICE DAILY; DX CODE- E11.9 (DME) lancets [OneTouch Delica Lancets] 30 gauge misc See Rx Instructions .Route Qty: 100 2RF Rx Instructions: TEST BSG TWICE DAILY; DX CODE- E11.9 tgyingdbaqwf-gcredgom-uuhtnv tablet 1 tab PO HS (DME) lancets [Accu-Chek Fastclix Lancet Drum] misc See Dose Instructions .ROUTE .MEDSUPPLY Qty: 50 Patient Comments: Test 2 times a day as directed Rx Instructions: As directed cholecalciferol (vitamin D3) 2,000 unit tablet 2,000 units PO HS cyanocobalamin (vitamin B-12) 1,000 mcg tablet 1,000 mcg PO DAILY metformin 500 mg tablet extended release 24 hr 1,000 mg PO BID Qty: 360 3RF irbesartan 150 mg tablet 150 mg PO QAM Qty: 90 3RF omeprazole 20 mg capsule,delayed release(DR/EC) 20 mg PO QAM Qty: 90 3RF coenzyme Q10 200 mg capsule 400 mg PO HS ascorbic acid (vitamin C) [Vitamin C] 500 mg Tablet 500 mg PO QAM Levemir FlexPen 100 unit/mL (3 mL) insulin pen 20 unit subcut HS zinc gluconate 50 mg Tablet 50 mg PO DAILY Discharge Orders: Discharge Order (Routine); Ordered 01/09/23 Ordered By: Jayme Martinez Admission Data Admit Date/Time: 01/08/23 15:45 Attending Provider: Jayme Martinez Admit Provider: Long [place] Primary Care Provider: Deepali Acevedo Other Providers: [place] Coding Level of Care Code 37372 INP/OBS DISCH >30 MIN Diagnoses Nephrolithiasis N20.0 History of arthroscopy of left shoulder Z98.890
== END 2023-01-09 17:05 | disposition home or self-care (01) | DRG 694 ==
LOC: ED 12:18 → 3N 15:45 → SUATTDRO 15:45 → 3N 16:16